=== PATIENT | female | born 1985 | race Caucasian/White ===

== ENCOUNTER 2017-02-15 13:21 | Emergency (ER) | payer OTHER ==
[~2017-02-15] VITALS: Ht 167.6 cm; Wt 66.7 kg
[~2017-02-15 13:21] MED LIST: ANAPROX DS550 MG PO; ATARAX25 MG PO; CIPRO500 MG PO; CIPROFLOXACIN500 MG PO; DAYPRO600 M1 PO; DIFLUCAN150 MG PO; DOXYCYCLINE MO100 MG PO; ELIMITE5% TP; MACROBID100 M1 PO; MOTRIN600 MG PO; MOTRIN800 MG PO; NKHM; PHENERGAN25 M1 PO; PYRIDIUM200 MG PO; ROBAXIN750 MG PO; TRAMADOL HCL50 MG PO
[2017-02-15] MEDS ORDERED: VALTREX500 MG PO (13:27)
[2017-02-15] MEDS ORDERED: VISTARIL25 MG PO (14:59)
== END 2017-02-15 15:12 | disposition home or self-care (01) ==
LOC: ED 13:21
DX: F41.9 Anxiety disorder, unspecified (principal)

== ENCOUNTER 2017-03-21 11:52 | Emergency (ER) | payer OTHER ==
[~2017-03-21] VITALS: Ht 165.1 cm; Wt 65.8 kg
[~2017-03-21 11:52] MED LIST changes: +VALTREX500 MG PO; +VISTARIL25 MG PO
[2017-03-21] MEDS ORDERED: TRI-SPRINTEC 281 TA2 PO (12:09)
[2017-03-21] MEDS ORDERED: ADDERALL 10 MG10 MG PO (12:09)
[2017-03-21] MEDS ORDERED: AMOXICILLIN500 M2 PO (13:09)
== END 2017-03-21 13:19 | disposition home or self-care (01) ==
LOC: ED 11:52
DX: J02.9 Acute pharyngitis, unspecified (principal); Z79.899 Other long term (current) drug therapy

== ENCOUNTER 2017-08-03 23:09 | Emergency (ER) | payer OTHER ==
[~2017-08-03] VITALS: Ht 167.6 cm; Wt 68.0 kg
[~2017-08-03 23:09] MED LIST changes: +ADDERALL 10 MG10 MG PO; +AMOXICILLIN500 M2 PO; +TRI-SPRINTEC 281 TA2 PO
[2017-08-03] MEDS ORDERED: ATARAX,VISTARIL50 MG PO (23:49)
[2017-08-03] MEDS ORDERED: KENALOG 0.1%80 GM T (23:49)
== END 2017-08-04 00:51 | disposition home or self-care (01) ==
LOC: ED 23:09
DX: L30.9 Dermatitis, unspecified (principal); Z79.899 Other long term (current) drug therapy